=== PATIENT | female | born 1955 | race Caucasian/White ===

== ENCOUNTER → 2024-07-02 | Outpatient (CLI) | payer MEDICARE, SELFPAY ==
--- NOTE | 2024-07-02 12:30 | XR_ITS ---
Examination: Breast ultrasound complete, bilateral Date and time of exam: July 02, 2024 1313 hours INDICATIONS: Family history breast cancer outside mammogram April 11, 2024 mass in the left breast, masses in the right breast Technique: Real-time grayscale ultrasonographic imaging bilateral breasts, including all 4 quadrants as well as nipple retroareolar and axillary regions. Findings: Sonographic images right breast 11:00 intramammary lymph node 16 x 15 mm Axillary lymph node 33 x 23 mm Sonographic images left breast No cystic or solid mass 4.9 cm left axillary lymph node IMPRESSION: BI-RADS Category 3: Probably benign findings Bilateral breast sonography follow-up is needed to document stability of axillary lymphadenopathy described above
--- NOTE | 2024-07-02 13:30 | XR_ITS ---
Examination: Diagnostic digital mammography, bilateral Computer aided detection 3-D breast Tomosynthesis, bilateral Date and time of exam: June 22, 2024 1340 hours INDICATIONS: Outside mammogram April 11, 2024 15 mm mass upper outer quadrant left breast, 25 mm mass upper outer quadrant right breast Technique: Nonmagnified MLO, CC views of the breasts to been obtained, reconstructed from 3-D Tomosynthesis images. R2 computer aided detection program utilized for evaluation of suspicious masses and/or abnormal calcifications. 3-D Tomosynthesis images obtained. Findings: Scattered areas of fibroglandular density Focal asymmetry nipple level left breast on the spot compression CC and MLO views Partially circumscribed 23 mm x 27 mm mass upper outer right breast Impression: BI-RADS Category 0: Incomplete: Need additional imaging evaluation This patient should return for dedicated repeat breast sonography with the radiologist in attendance.
== END | disposition home or self-care (01) ==
LOC: CDIM 12:49
PROVIDERS: Referring Provider Physician Assistant; Visit Provider Physician Assistant
DX: R92.8 Other abnormal and inconclusive findings on diagnostic imaging of breast (principal); R59.0 Localized enlarged lymph nodes
CPT/HCPCS: 76641; 77062; 77066; G0279